=== PATIENT | male | born 1975 | race Caucasian/White ===

== ENCOUNTER → 2020-06-29 12:58 | Outpatient (REF) | payer BC, SELFPAY | LOC: ANHLAB 12:58 | PROVIDERS: Visit Provider Nurse Practitioner | DX: R22.9 Localized swelling, mass and lump, unspecified (principal) | CPT/HCPCS: 88304 ==

== ENCOUNTER 2021-05-23 06:24 | Inpatient (IN) | payer BC, SELFPAY ==
[2021-05-23] VITALS (32 sets, daily range): BP systolic 139–157; BP diastolic 70–107; PULSE 85–101; RESP 12–26; TEMP 36.8–39.3; O2SAT 90–97; BMI 27.9
--- NOTE | ~2021-05-23 | US_ITS ---
EXAMINATION:US venous doppler LE BI INDICATION:Pulmonary embolism TECHNIQUE: Multiple grayscale, color flow and Doppler images of the right and left lower extremity de ep venous systems were obtained and reviewed. COMPARISON:No prior studies for comparison. FINDINGS: The common femoral, superficial femoral and popliteal veins demonstrate normal respiratory variation, augmentation and compressibility. Color flow is also seen within the posterior tibial, pe roneal, greater saphenous and profunda veins. IMPRESSION: 1: No lower extremity deep venous thrombosis. Reviewed, dictated and finalized at location A. INE TACK PULLER
--- NOTE | ~2021-05-23 | XR_ITS ---
XR chest 1V portable 05/23/2021 09:21 Indication: Covid infection. Chest tightness and cough. Procedure: AP portable chest Comparison: No prior studies for comparison. Findings: Patchy bilateral airspace disease, compatible with pneumonia. No pleural effusion or pneumo thorax. Heart size is normal. No acute osseous abnormality. Healed right clavicular fracture. Impression: 1: Patchy bilateral airspace disease, compatible with pneumonia. Reviewed, dictated and finalized at location A. IST Impression: 1: Patchy bilateral airspace disease, compatible with pneumonia.
--- NOTE | ~2021-05-23 | XR_ITS ---
XR chest 1V portable DATE: 05/25/2021 06:31 INDICATION: New-onset chest pain with inspiration. Pulmonary embolism. Covid pneumonia. TECHNIQUE: Portable upright AP chest on 05/21/2021 at 0452 hours COMPARISON: 05/23/2021 CTA chest FINDINGS: Heart size is normal. Scattered mild patchy groundglass infiltrates are suggested, demonstr ated to better advantage on 05/23/2021 CT examination. No pleural effusion or pulmonary vascular congestion or pneumothorax is evident. IMPRESSION: Scattered mild patchy groundglass infiltrates are suggested Reviewed, dictated and finalized at location A. OLOGY TEACHER
--- NOTE | ~2021-05-23 | CT_ITS ---
EXAMINATION: CTA chest PE abdomen pel DATE: 05/23/2021 10:21 PAINT STRIPPER INDICATION: Chest pain. Covid infection. Syncope. TECHNIQUE: Computed tomographic angiography (CTA) of the chest, abdomen, and pelvis was performed wit hout and with 100 mL Omnipaque-350 intravenous contrast. The dose-length product was 899.72 mGy-cm. M aximum intensity projection 3D-reconstructions of the aorta and other arteries were constructed by corey garner technologist on a separate workstation. Automated exposure control and iterative reconstruction denia hnique were employed. COMPARISON: None. FINDINGS: CHEST CTA: Study is technically adequate. There are small filling defects in right upper and lower lobe subsegme ntal pulmonary arteries, consistent with pulmonary embolism, small thrombus burden. Heart size normal . No significant pleural or pericardial effusion. Small hiatal hernia. There is fluid in the superior pericardial recess. No significant lymphadenopathy. Heart size is borderline. There is patchy ground glass opacification throughout both lungs, consistent with pneumonia. No endobronchial lesions. ABDOMEN AND PELVIS CTA: The liver, spleen, pancreas, adrenal glands and kidneys are unremarkable. Gallbladder is present. Non obstructive bowel gas pattern. No lymphadenopathy. Gallbladder is present. No free air or free fluid. No significant bone or joint abnormality. No focal lytic or blastic lesions. IMPRESSION: 1. Small filling defects in right upper and lower lobe subsegmental pulmonary arteries, consistent wi th pulmonary embolism, small thrombus burden. 2: Patchy bilateral groundglass opacities of both lungs, consistent with Covid pneumonia. Reviewed, dictated and finalized at location A. T STRIPPER IMPRESSION: 1. Small filling defects in right upper and lower lobe subsegmental pulmonary a rteries, consistent with pulmonary embolism, small thrombus burden. 2: Patchy bilateral groundglass opacities of both lungs, consistent with Covid pneumonia.
--- NOTE | ~2021-05-23 | CT_ITS ---
EXAMINATION: CTA chest PE protocol DATE: 05/25/2021 11:27 INDICATION: New oxygen requirement and pleuritic chest pain. TECHNIQUE: Computed tomography (CT) pulmonary angiogram of the chest was performed with 100 mL Omnipa que-350 intravenous contrast. Additional 3D reconstructions utilizing coronal maximum intensity proje ction (MIP) were performed. Automated exposure control and iterative reconstruction technique were em ployed. The dose-length product was 479.52 mGy-cm. COMPARISON: 05/23/2021 FINDINGS: Excellent contrast opacification of the pulmonary arteries. There is mild streak artifact from dense contrast in the superior vena cava and right atrium. Mild scattered respiratory motion artifact which does not significantly limit evaluation. No pulmonary embolism. Interval increase in diffuse patchy groundglass opacities throughout both lungs with peripheral and lower lung predominance consistent wi th COVID pneumonia. No pleural effusion or pneumothorax. Heart size is normal. No pericardial effusio n. Thoracic aorta is normal in caliber with no dissection. Calcified mediastinal lymph nodes consiste nt with old granulomatous disease. No pathologically enlarged thoracic lymphadenopathy. Small sliding -type hiatal hernia. The visualized upper abdomen and bones are unremarkable. IMPRESSION: 1. No pulmonary embolism. 2. Interval increase in diffuse patchy bilateral groundglass opacities consistent with worsening COVI D pneumonia. Reviewed, dictated and finalized at location H. MACHINE OPERATOR IMPRESSION: 1. No pulmonary embolism. 2. Interval increase in diffuse patchy bilateral groundglass opacities consiste nt with worsening COVID pneumonia.
--- NOTE | ~2021-05-23 | CT_ITS ---
EXAMINATION: CT BRAIN W/O DATE: 05/23/2021 12:01 INDICATION: Head laceration. Loss of consciousness. Covid infection. TECHNIQUE: Computed tomography (CT) of the head was performed without intravenous contrast. The dose- length product was 605.33 mGy-cm. Automated exposure control and iterative reconstruction technique w ere employed. COMPARISON: No prior studies for comparison. FINDINGS: Normal brain parenchymal volume for age. Normal salas-white differentiation. No acute intrac ranial hemorrhage, infarction, mass or mass effect. No ventriculomegaly or midline shift. Midline sagittal images demonstrate a normal corpus callosum, c raniovertebral junction and sella turcica. Basilar cisterns are patent. There is mild mucosal thickening in the ethmoid sinuses. Mastoids are pneumatized. IMPRESSION: 1. No acute intracranial abnormality. Reviewed, dictated and finalized at location A. EHOLDER MANAGER
--- NOTE | 2021-05-23 09:03 | ECG_ITS ---
Measurements Intervals [place] Rate: 90 P: 30 SD: 176 QRS: 42 QRSD: 98 T: -3 QT: 347 QTc: 425 Interpretive Statements SINUS RHYTHM POSSIBLE LEFT ATRIAL ENLARGEMENT MINIMAL Q WAVES- DIFFUSE LEADS BORDERLINE ST-T WAVE ABNORMALITY- INFERIOR LEADS BASELINE ARTIFACT- I, III, AVL, AVF BORDERLINE ECG Electronically Signed On 05-23-2021 10:41:38 PIPE SMOKING MACHINE OPERATOR by Korey Saenz D.O.
[2021-05-23] MEDS: ONDANSETRON INJ 4 MG/2 ML VIAL IV PUSH (09:22)
[2021-05-23] MEDS: LACTATED RINGERS 1,000 ML 999 ML IV CONT (09:22)
[2021-05-23 09:26] LABS: Basophils Percent Auto 0.2 % (0.2-1.2); Hemoglobin 14.4 g/dL (14.0-18.0); Immature Granulocyte Absolute 0.02 K/mm3 (0.00-0.031); Immature Granulocyte Percent A 0.4 % (0-0.5); Lymphocytes Absolute Auto 0.61 K/mm3 (0.9-3.2); Lymphocytes Percent Auto 12.2 % (18.3-44.2); Mean Corpuscular Hemoglobin 29.9 pg (26-34); Mean Platelet Volume 9.7 fl (7.4-10.4); Monocytes Absolute Auto 0.5 K/mm3 (0.1-0.6); Neutrophils Absolute Auto 3.9 K/mm3 (1.3-6.7); Neutrophils Percent Auto 78.2 % (45.5-73.1); Platelet Count Result 196 k/mm3 (150-375); Red Blood Count 4.82 M/mm3 (4.6-6.20); Red Cell Distribution Width 11.7 % (11.5-14.5)
[2021-05-23 09:31] LABS: Alanine Aminotransferase 32 U/L (4-50); Albumin Level 4.1 g/dL (3.5-5.1); Alkaline Phosphatase 53 U/L (38-126); Anion Gap 9 mmol/L (8-16); Aspartate Amino Transferase 36 U/L (17-59); Bilirubin,Total 0.5 mg/dL (0.2-1.3); Blood Urea Nitrogen 10 mg/dL (9-20); Calcium 8.5 mg/dL (8.4-10.2); Carbon Dioxide 29 mmol/L (22-30); Chloride 97 mmol/L (98-107); Estimated CRCL calculation 108 ml/min; Estimated Glomerular Filt Rate > 60; Glucose 140 mg/dL (65-110); Lipase 89 U/L (23-300); Potassium 3.6 mmol/L (3.4-5.0); Sodium 135 mmol/L (137-145)
[2021-05-23 09:44] LABS: Atypical Lymphocytes Present; Platelet Estimate Adequate (Adequate)
--- NOTE | 2021-05-23 09:45 | ED.SYNCOPE ---
HPI - Syncope General Chief Complaint: Syncope Stated Complaint: covid x 10 days now passing out Time Seen by Provider: 05/23/21 08:33 Source: patient and RN notes reviewed Mode of arrival: ambulatory Limitations: no limitations History of Present Illness HPI narrative: This is a 45 year old male who presents for evaluation of a syncope episode. Patient reports he was diagnosed with covid 10 days ago. He had been doing well except for continued fever and chills. Last night he was having chills so he decided to take a hot bath. He states he passed out upon standing up to get out of bath tub. He has had 2 other episodes of syncope. This morning he was sitting on the toilet and he became nauseated. He states he passed out on toilet, and he hit his head. He is complaining of diffuse abdominal pain discomfort over past couple of days. He denies chest pain, sob. Related Data Home Medications Medication Instructions Recorded Confirmed No Home Medications 04/07/19 05/23/21 Allergies Allergy/AdvReac Type Severity Reaction Status Date / Time doxycycline Allergy Difficulty Verified 05/23/21 18:30 Breathing Review of Systems Review of Systems: All systems reviewed & are unremarkable except as noted in HPI and below PMFSH Past Medical History Medical History (Updated 05/23/21 @ 18:48 by Pennie Chapman MD) Patient denies medical problems Social History Social History Smoking status: Never smoker Alcohol intake: former Substance use: never Spiritual care concerns: No Exam Const: General: no acute distress and alert Orientation/consciousness: patient oriented x3 HENMT: Head: normocephalic and other (midforehead abrasion) Face and sinus: normal facial exam, sinuses nontender and face symmetric Mouth: Yes Normal oral and palatal mucosa present, Yes lip normal, Yes oropharynx normal and Yes moist mucous membranes Eyes: Pupils: Equal, round and reactive pupils present EOM: EOMs intact bilaterally Neck: Neck: normal visual inspection Chest: Chest palpation & inspection: normal inspection of the chest Resp: Effort & Inspection: normal respiratory effort and no retractions Auscultation: clear to auscultation bilaterally Cardio: Rate: regular rate Rhythm: regular rhythm Heart sounds: no murmurs GI: GI Palp: Yes Soft to palpation, Yes Tenderness to palpation present (GI) (LLQ) and No Guarding due to palpation present (GI) Auscultation: normal bowel sounds Skin: General skin exam: normal color Rashes: no rashes Neuro: General: patient oriented x3, moves all extremities and CN's II-XI intact bilaterally Extrem: General: normal to inspection Psych: Mental Status: mental status grossly normal Affect: normal affect Course Reevaluation(s) Reevaluation #1: I Discussed with patient that he will be admitted for observation for PE and syncope. Date: 05/23/21 Time: 12:30 Consultations Consultation #1: I Discussed case with DR. Mathews. He understands CT brain ordered before patient to be anticoagulated. CT initially not order because he did not have any vomiting, headache, dizziness or focal deficits. He acepts patient to tele for PE, syncope Date: 05/23/21 Time: 12:30 Vital Signs Vital signs: Vital Signs Temperature 98.2 F 05/23/21 06:42 Pulse Rate 88 05/23/21 06:42 Respiratory Rate 18 05/23/21 06:42 Blood Pressure 139/84 05/23/21 06:42 Pulse Oximetry 96 05/23/21 06:42 Temperature 100.2 F H 05/23/21 18:38 Pulse Rate 94 05/23/21 18:38 Respiratory Rate 18 05/23/21 18:38 Blood Pressure 154/85 H 05/23/21 18:38 Pulse Oximetry 93 05/23/21 18:38 MDM - Syncope Lab Data Attestation: I reviewed the patient's lab results. Result diagrams: 05/23/21 09:11 05/23/21 09:11 Labs: Lab Results 05/23/21 05/23/21 05/23/21 Range/Units 09:11 09:11 09:11 WBC
[2021-05-23 10:53] LABS: Add Urine Microscopic? YES; Appearance Urine Clear (Clear); Bilirubin Urine Negative (Negative); Blood Urine Negative (Negative); Color Urine Amber (Yellow); Glucose Urine UA Negative (Negative); Ketones Urine 1+ mg/dL (Negative); Leukocyte Esterase Ur Negative LEU/UL (Negative); Mucus Urine Few /lpf; Nitrate Urine Negative (Negative); Protein Urine 2+ mg/dL (Negative); Squamous Epithelial Cell Urine Rare /hpf (Few); WBC Urine 0-3 /hpf
[2021-05-23 11:31] LABS: Troponin I < 0.012 ng/mL (0.000-0.034)
[2021-05-23] MEDS: ENOXAPARIN 100 MG/ML SYRINGE 90 MG SUB-Q (12:41)
--- NOTE | 2021-05-23 18:17 | ADMGEN ---
This patient, Maida Yoder, was admitted to [facility] Surg Room 311-01. Patient/family oriented to hospital policies and general routines including ID bracelet, bed and alarms, visiting hours, pain management, procedures, bathroom and other care routines, personal items, smoking policy, room service/diet, and visiting hours. Information on how to activate the Rapid Response Team has been discussed. Patient/Family are encouraged to report perceived risks to care and to ask questions if they do not understand what they are told or what they should do.
--- NOTE | 2021-05-23 20:49 | PM.IMHP ---
H&P: HPI History of Present Illness Date/Time: 05/23/21 20:49 this is a 45-year-old male patient who has been having symptoms for at least 10 days and was diagnosed with COVID-19 10 days ago. The patient stated that he has fallen 2 nights in a row. The patient stated that he had been in a hot bathtub and gotten out and passed out hit his head 2 days ago. Today he said he had diarrhea and he was sitting on the toilet and had a vagal response and passed out hit his head has a laceration the left side of his head. The patient is having some abdominal pain and discomfort as well as diarrhea. He has been having fevers and chills. His fevers low-grade during the day and then elevate during the night. The patient has been having some severe coughing as well. He is not short of breath at this time. Head CT was read as no acute intracranial abnormality. Chest abdomen pelvis CT was read as small filling deficit right upper and lower lobe subsegmental pulmonary arteries consistent with pulmonary embolism small thrombus burden. Patchy bilateral ground-glass opacities both lungs consistent with COVID pneumonia. Chest x-ray was read as patchy bilateral airspace disease compatible with pneumonia. He is not requiring any oxygen at this time. The patient is being admitted to inpatient services on the date of service 05/23/2021. Chief Complaint: Syncopal episode Review of Systems Review of Systems: All systems reviewed & are unremarkable except as noted in HPI and below Constitutional: Constitutional: Reports as per HPI and Reports no additional constitutional complaints Eyes: Eyes: Reports as per HPI and Reports no additional eye complaints ENT: Reports system reviewed and no additional complaints, except as documented and Reports Normal hearing present Cardiovascular: Cardiovascular: Reports no additional cardiovascular complaints Respiratory: Respiratory: Reports no additional respiratory complaints and Reports no additional respiratory complaints Gastrointestinal: Gastrointestinal: Reports as per HPI and Reports no additional gastrointestinal complaints Musculoskeletal: Musculoskeletal: Reports no additional musculoskeletal complaints Integumentary/Breasts: Skin/Breast: Reports system reviewed and no additional complaints, except as docu and Reports as per HPI Neurologic: Reports system reviewed and no additional complaints, except as documented, Reports as per HPI and Reports Normal hearing present Psychiatric: Psychiatric: Reports no additional psychiatric complaints and Reports as per HPI Endocrine: Endocrine: Reports no additional endocrine complaints Hematologic/Lymphatic: Hematologic/Lymphatic: Reports no additional hematologic/lymphatic complaints Allergic/Immunologic: Allergic/Immunologic: Reports no additional allergic/immunologic complaints PMF Past Medical History Medical History Patient denies medical problems Surgical History Surgical History No pertinent past surgical history Family History Family History (Updated 05/23/21 @ 20:56 by Jerica Soto NP) Mother Cancer Social History Social History (Updated 05/23/21 @ 20:56 by Jerica Soto NP) Social History: The patient does not have any children. He is single. He does not smoke or drink or use any illicit drugs. He does not have a durable power trust and estates attorney for healthcare. The patient works for [employer]. Code status full code Smoking status: Never smoker Alcohol intake: former Substance use: never Spiritual care concerns: No Meds Home Medications and Allergies Home Medications Medication Instructions Recorded Confirmed Type No Home Medications 04/07/19 05/23/21 History Allergies Allergy/AdvReac Type Severity Reaction Status Date / Time doxycycline Allergy Difficulty Verified 05/23/21 18:30 Br
[2021-05-23 21:30] LABS: Alanine Aminotransferase 30 U/L (4-50); Estimated CRCL calculation 108 ml/min; Estimated Glomerular Filt Rate > 60
[2021-05-23 21:31] LABS: INR 1.1; Prothrombin Time 13.6 Seconds (11.1-14.7)
[2021-05-24] VITALS (8 sets, daily range): BP systolic 135–155; BP diastolic 78–93; PULSE 78–98; RESP 16–20; TEMP 36.2–38; O2SAT 91–93
[2021-05-24] MEDS: ENOXAPARIN 100 MG/ML SYRINGE 90 MG SUB-Q ×2 (00:40→13:14)
--- NOTE | 2021-05-24 06:00 | ECHO_ITS ---
Patient Info Name: Maida Yoder Age: 45 years : 1975 Gender: Male Ht: 71 in Wt: 200 lbs BSA: 2.15 m2 HR: 78 bpm BP: 146 / 70 mmHg Heart Rhythm: Sinus Rhythm Technical Quality: Good Exam Date: 05/24/2021 10:38 AM Exam Location: [facility] Pulmonary Exam Room: 311 Patient Status: Inpatient Admit Date: 05/23/2021 Staff Ordering Physician: Pennie Chapman MD Brush Clearing Laborer: Diane Pierre RDCS Attending Provider: Lor Armenta PA-C Referring Physician: Ari HILL; Exam Type: CA echo doppler color flow Study Info Indications - syncope pulm embolism Complete two-dimensional, color flow and Doppler transthoracic echocardiogram is performed. Summary 1. Complete two-dimensional, color flow and Doppler transthoracic echocardiogram is performed. 2. Left ventricular chamber dimension is normal. 3. Left ventricular systolic function is normal, estimated at 65-70%. 4. There is mildly increased left ventricular wall thickness. 5. The left ventricular diastolic function is grade I diastolic dysfunction. 6. There is mild mitral valve regurgitation. 7. There is mild tricuspid valve regurgitation. Left Ventricle Left ventricular chamber dimension is normal. Left ventricular systolic function is normal, estimated at 65-70%. There is mildly increased left ventricular wall thickness. The left ventricular diastolic function is grade I diastolic dysfunction. Right Ventricle Right ventricular chamber dimension is normal. Right ventricular systolic function is normal. Left Atria Left atrial chamber dimension is normal. Right Atria Right atrial chamber dimension is normal. Atrial Septum Intact interatrial septum visualized by color flow imaging. Aortic Valve The aortic valve is trileaflet. There is mild aortic valve sclerosis. There is no aortic valve stenosis. There is trace aortic valve regurgitation. Pulmonic Valve The pulmonic valve is normal. There is no pulmonic valve stenosis. There is trace pulmonic regurgitation. Mitral Valve The mitral valve has normal leaflets. There is no mitral valve stenosis. There is mild mitral valve regurgitation. Tricuspid Valve The tricuspid valve leaflets are normal. There is no significant tricuspid valve stenosis. There is mild tricuspid valve regurgitation. No pulmonary hypertension, estimated pulmonary arterial systolic pressure is 26 mmHg. Pericardium/Pleural The pericardium appears normal. There is no pericardial effusion. Aorta The aortic root size at the sinus of Valsalva is normal. Left Ventricular Outflow Tract Name Value Normal LVOT 2D LVOT Diameter 2.1 cm LVOT Doppler LVOT Peak Gradient 6 mmHg LVOT Mean Gradient 3 mmHg LVOT VTI 21 cm LVOT VTI/AV VTI Ratio 0.9 LVOT Stroke Volume 75 ml LVOT CO 17.8 l/min LVOT CI 8.3 l/min/m2 Pulmonic Valve
[2021-05-24 06:35] LABS: INR 1.1; Prothrombin Time 13.8 Seconds (11.1-14.7)
[2021-05-24 06:36] LABS: Partial Thromboplastin Time 38.8 SECONDS (22.3-36.8)
[2021-05-24 06:41] LABS: Lactic Acid Reflex 0.9 mmol/L (0.7-2.1)
[2021-05-24 06:42] LABS: Potassium 3.3 mmol/L (3.4-5.0)
[2021-05-24 06:44] LABS: Basophils Percent Auto 0.2 % (0.2-1.2); Hematocrit 35.9 % (42.0-52.0); Hemoglobin 12.7 g/dL (14.0-18.0); Immature Granulocyte Absolute 0.03 K/mm3 (0.00-0.031); Immature Granulocyte Percent A 0.7 % (0-0.5); Lymphocytes Absolute Auto 1.14 K/mm3 (0.9-3.2); Lymphocytes Percent Auto 24.8 % (18.3-44.2); Mean Corpuscular HGB Conc 35.4 g/dl (32-36); Mean Corpuscular Volume 84.9 fl (80-100); Mean Platelet Volume 9.9 fl (7.4-10.4); Monocytes Absolute Auto 0.4 K/mm3 (0.1-0.6); Monocytes Percent Auto 9.1 % (2.6-8.5); Neutrophils Percent Auto 65.2 % (45.5-73.1); Platelet Count Result 187 k/mm3 (150-375); Red Blood Count 4.23 M/mm3 (4.6-6.20); Red Cell Distribution Width 11.8 % (11.5-14.5); White Blood Count 4.6 K/mm3 (4.5-10.0)
[2021-05-24 06:57] LABS: Alanine Aminotransferase 35 U/L (4-50); Albumin Level 3.5 g/dL (3.5-5.1); Alkaline Phosphatase 47 U/L (38-126); Anion Gap 3 mmol/L (8-16); Aspartate Amino Transferase 45 U/L (17-59); Bilirubin,Total 0.4 mg/dL (0.2-1.3); Blood Urea Nitrogen 11 mg/dL (9-20); CRP 6.6 mg/dL (<1.0); Carbon Dioxide 32 mmol/L (22-30); Chloride 94 mmol/L (98-107); Estimated CRCL calculation 108 ml/min; Estimated Glomerular Filt Rate > 60; Glucose 112 mg/dL (65-110); Lactate Dehydrogenase 822 U/L (313-618); Magnesium 1.8 mg/dL (1.6-2.3); Sodium 129 mmol/L (137-145)
[2021-05-24 08:09] LABS: NT Pro B Type Natriuretic Pept 93 pg/mL (5-100)
[2021-05-24] MEDS: POTASSIUM CHLORIDE 20 MEQ TABLET PO (08:57)
[2021-05-24] MEDS: DEXAMETHASONE 2 MG TABLET 6 MG PO (08:58)
[2021-05-24] MEDS: ACETAMINOPHEN 325 MG TABLET 650 MG PO (08:58)
[2021-05-24 12:53] LABS: Creatinine Urine 57.6 mg/dL
[2021-05-24 12:57] LABS: Sodium Urine Random 11 meq/L
--- NOTE | 2021-05-24 13:59 | PC.NURSE ---
Patient informed RN his mother was recently started on anticoagulant therapy and had an allergic reaction. Mother was prescribed Xarelto, patient wanted RN to note this in his chart.
[2021-05-24 14:29] LABS: Sodium 131 mmol/L (137-145)
--- NOTE | 2021-05-24 15:15 | P.PNIM_ITS ---
Progress Note: A&P Assessment and Plan (1) Syncope and collapse: Code(s): R55 - Syncope and collapse Status: Acute Assessment and Plan: Likely secondary to dehydration. Patient states episode occurred after having several bouts of diarrhea. * Fall precautions implemented * Check orthostatic blood pressures * He has been rehydrated with IV fluids. Encourage oral fluid intake * Echocardiogram reviewed with normal systolic function and no significant valvular disease * He did hit his head when he lost consciousness. Head CT with no acute findings. Small abrasion on anterior forehead (2) Pneumonia due to 2019 novel coronavirus: Code(s): U07.1 - COVID-19; J12.82 - Pneumonia due to coronavirus disease 2019 Status: Acute Assessment and Plan: Positive COVID test on 03/13/2021. * CXR showed patchy bilateral airspace disease consistent with pneumonia, also evident on CTA * He has no oxygen requirement. He is maintaining adequate oxygen saturations on room air * No need for COVID-19 specific therapy at this time including dexamethasone or remdesivir given his lack of O2 requirements and onset of symptoms * Supportive care to include bronchodilators, antipyretics, expectorants, incentive spirometry * Continue isolation precautions * Inflammatory markers are elevated. Continue to trend * He has been febrile up to 102.8?. Antipyretics as needed. Last temperature 97.8? * Patient has not been vaccinated for COVID-19 (3) Pulmonary emboli: Qualifiers: Acute cor pulmonale presence: without acute cor pulmonale Chronicity: acute Pulmonary embolism type: unspecified Qualified Code(s): I26.99 - Other pulmonary embolism without acute cor pulmonale Code(s): I26.99 - Other pulmonary embolism without acute cor pulmonale Status: Acute Assessment and Plan: CTA showed small filling defects in the right upper and lower lobe subsegmental pulmonary arteries with small thrombus burden * likely secondary to COVID-19 * venous Doppler negative for DVT * echo reviewed with no evidence of heart strain * BNP is within normal limits. troponin negative * received therapeutic subcutaneous Lovenox injections. * will transition to Eliquis this evening. 10 mg b.i.d. x7 days then 5 mg b.i.d. * care coordination following for pricing for Eliquis. Patient agreeable to cost (4) Hyponatremia: Code(s): E87.1 - Hypo-osmolality and hyponatremia Status: Acute Assessment and Plan: Sodium slightly decreased to 129 this morning * FENa is 0.1% * Likely related to dehydration * Sodium this afternoon improved to 131 * Encourage oral fluid intake. Hold off on further IV fluids at this time as he has already been rehydrated with IV fluids and is tolerating oral intake. Do not want to volume overload given his respiratory illness * Repeat sodium this evening to ensure continued improvement at appropriate rate (5) Hypokalemia: Code(s): E87.6 - Hypokalemia Status: Acute Assessment and Plan: Potassium 3.3 this morning * administer 20 mEq p.o. KCl * monitor BMP Subjective Date/time seen: 05/24/21 15:15 Interval history: Date of service: 05/24/2021 Maida Yoder is a healthy 45-year-old male who denies any significant past medical history who is seen in follow-up for COVID-19 and pulmonary embolism. He is feeling a lot better today. He states that his fever finally broke after having high fevers for about 10 days. His breathing is better. He has oc
--- NOTE | 2021-05-24 15:15 | PM.IMPN ---
Progress Note: A&P Assessment and Plan (1) Syncope and collapse: Code(s): R55 - Syncope and collapse Status: Acute Assessment and Plan: Likely secondary to dehydration. Patient states episode occurred after having several bouts of diarrhea. Fall precautions implemented Check orthostatic blood pressures He has been rehydrated with IV fluids. Encourage oral fluid intake Echocardiogram reviewed with normal systolic function and no significant valvular disease He did hit his head when he lost consciousness. Head CT with no acute findings. Small abrasion on anterior forehead (2) Pneumonia due to 2019 novel coronavirus: Code(s): U07.1 - COVID-19; J12.82 - Pneumonia due to coronavirus disease 2019 Status: Acute Assessment and Plan: Positive COVID test on 03/13/2021. CXR showed patchy bilateral airspace disease consistent with pneumonia, also evident on CTA He has no oxygen requirement. He is maintaining adequate oxygen saturations on room air No need for COVID-19 specific therapy at this time including dexamethasone or remdesivir given his lack of O2 requirements and onset of symptoms Supportive care to include bronchodilators, antipyretics, expectorants, incentive spirometry Continue isolation precautions Inflammatory markers are elevated. Continue to trend He has been febrile up to 102.8?. Antipyretics as needed. Last temperature 97.8? Patient has not been vaccinated for COVID-19 (3) Pulmonary emboli: Qualifiers: Acute cor pulmonale presence: without acute cor pulmonale Chronicity: acute Pulmonary embolism type: unspecified Qualified Code(s): I26.99 - Other pulmonary embolism without acute cor pulmonale Code(s): I26.99 - Other pulmonary embolism without acute cor pulmonale Status: Acute Assessment and Plan: CTA showed small filling defects in the right upper and lower lobe subsegmental pulmonary arteries with small thrombus burden likely secondary to COVID-19 venous Doppler negative for DVT echo reviewed with no evidence of heart strain BNP is within normal limits. troponin negative received therapeutic subcutaneous Lovenox injections. will transition to Eliquis this evening. 10 mg b.i.d. x7 days then 5 mg b.i.d. care coordination following for pricing for Eliquis. Patient agreeable to cost (4) Hyponatremia: Code(s): E87.1 - Hypo-osmolality and hyponatremia Status: Acute Assessment and Plan: Sodium slightly decreased to 129 this morning FENa is 0.1% Likely related to dehydration Sodium this afternoon improved to 131 Encourage oral fluid intake. Hold off on further IV fluids at this time as he has already been rehydrated with IV fluids and is tolerating oral intake. Do not want to volume overload given his respiratory illness Repeat sodium this evening to ensure continued improvement at appropriate rate (5) Hypokalemia: Code(s): E87.6 - Hypokalemia Status: Acute Assessment and Plan: Potassium 3.3 this morning administer 20 mEq p.o. KCl monitor BMP Subjective Date/time seen: 05/24/21 15:15 Interval history: Date of service: 05/24/2021 Maida Yoder is a healthy 45-year-old male who denies any significant past medical history who is seen in follow-up for COVID-19 and pulmonary embolism. He is feeling a lot better today. He states that his fever finally broke after having high fevers for about 10 days. His breathing is better. He has occasional cough that is improving. Nonproductive of sputum. Shortness of breath has improved. He was previously endorsing diarrhea, but this has resolved and he has not had any loose stools today. He does have an abrasion on his head from when he fell. He says he has some associated neck pain but this is improving. He denies headache. He denies chest pain, pleuritic discomfort, hemoptysis, palpitations. No dizzines
[2021-05-24 20:05] LABS: Sodium 134 mmol/L (137-145)
[2021-05-24] MEDS: APIXABAN 5 MG TABLET 10 MG PO (23:09)
[2021-05-24] MEDS: ALBUTEROL SULFATE (*SP) AEROSOL 1 PUFF 2 PUFF INHALATION (23:11)
[2021-05-24] MEDS: guaiFENesin/DEXTROMETHORPHAN 10 ML UDC PO (23:19)
[2021-05-25] VITALS (14 sets, daily range): BP systolic 127–158; BP diastolic 73–102; PULSE 79–94; RESP 18–20; TEMP 36.2–38.3; O2SAT 93–97
[2021-05-25 06:43] LABS: Hematocrit 38.7 % (42.0-52.0); Hemoglobin 13.9 g/dL (14.0-18.0); Mean Corpuscular HGB Conc 35.9 g/dl (32-36); Mean Corpuscular Hemoglobin 29.8 pg (26-34); Mean Corpuscular Volume 82.9 fl (80-100); Mean Platelet Volume 9.6 fl (7.4-10.4); Platelet Count Result 246 k/mm3 (150-375); Red Blood Count 4.67 M/mm3 (4.6-6.20); Red Cell Distribution Width 11.9 % (11.5-14.5); White Blood Count 7.6 K/mm3 (4.5-10.0)
[2021-05-25 06:49] LABS: INR 1.2; Prothrombin Time 14.7 Seconds (11.1-14.7)
[2021-05-25 07:03] LABS: Alanine Aminotransferase 118 U/L (4-50); Albumin Level 3.8 g/dL (3.5-5.1); Alkaline Phosphatase 55 U/L (38-126); Anion Gap 6 mmol/L (8-16); Aspartate Amino Transferase 113 U/L (17-59); Bilirubin,Total 0.5 mg/dL (0.2-1.3); Blood Urea Nitrogen 10 mg/dL (9-20); CRP 4.4 mg/dL (<1.0); Calcium 8.9 mg/dL (8.4-10.2); Carbon Dioxide 30 mmol/L (22-30); Chloride 97 mmol/L (98-107); Estimated CRCL calculation 141 ml/min; Estimated Glomerular Filt Rate > 60; Glucose 137 mg/dL (65-110); Lactate Dehydrogenase 1127 U/L (313-618); Potassium 3.4 mmol/L (3.4-5.0); Sodium 133 mmol/L (137-145)
[2021-05-25] MEDS: APIXABAN 5 MG TABLET 10 MG PO ×2 (08:21→22:04)
[2021-05-25 08:37] LABS: Ferritin > 2000.00 ng/mL (17.9-464)
--- NOTE | 2021-05-25 12:15 | P.PNIM_ITS ---
Progress Note: A&P Assessment and Plan (1) Syncope and collapse: Code(s): R55 - Syncope and collapse Status: Acute Assessment and Plan: Likely secondary to dehydration. Patient states episode occurred after having several bouts of diarrhea. * Fall precautions implemented * Orthostatic blood pressures negative * He was rehydrated with IV fluids. Encourage oral fluid intake * Echocardiogram reviewed with normal systolic function and no significant valvular disease * He did hit his head when he lost consciousness. Head CT with no acute findings. Small abrasion on anterior forehead (2) Pneumonia due to 2019 novel coronavirus: Code(s): U07.1 - COVID-19; J12.82 - Pneumonia due to coronavirus disease 2019 Status: Acute Assessment and Plan: Positive COVID test on 03/13/2021. * CXR showed patchy bilateral airspace disease consistent with pneumonia, also evident on CTA * He is outside window of treatment with dexamethasone or remdesivir. * Previously had no oxygen requirements, though did develop O2 requirement overnight. May be related to PE vs pneumonia * Supportive care to include bronchodilators, antipyretics, expectorants, incentive spirometry * Continue isolation precautions * Inflammatory markers are elevated. Continue to trend * He has been febrile up to 102.8?. Antipyretics as needed. Afebrile 24 hours * Patient has not been vaccinated for COVID-19 (3) Pulmonary emboli: Qualifiers: Acute cor pulmonale presence: without acute cor pulmonale Chronicity: acute Pulmonary embolism type: unspecified Qualified Code(s): I26.99 - Other pulmonary embolism without acute cor pulmonale Code(s): I26.99 - Other pulmonary embolism without acute cor pulmonale Status: Acute Assessment and Plan: CTA showed small filling defects in the right upper and lower lobe subsegmental pulmonary arteries with small thrombus burden * likely secondary to COVID-19 * venous Doppler negative for DVT * echo reviewed with no evidence of heart strain * BNP is within normal limits. troponin negative * received therapeutic subcutaneous Lovenox injection prior to initiating Eliquis * Continue Eliquis 10 mg b.i.d. x7 days then 5 mg b.i.d. * Did develop pleuritic CP and desaturated overnight to 86% (now on 2.5 L). Suspect threw another clot given his acute change, though venous Doppler negative. Repeat CTA to re-evaluate clot burden (4) Hyponatremia: Code(s): E87.1 - Hypo-osmolality and hyponatremia Status: Acute Assessment and Plan: Improved. Sodium was decreased at 129 * FENa is 0.1% * Likely related to dehydration * Sodium this morning is 133 * Encourage oral fluid intake. * Monitor BMP daily (5) Hypokalemia: Code(s): E87.6 - Hypokalemia Status: Acute Assessment and Plan: Improved with supplementation. Potassium 3.4 this morning * monitor BMP (6) Elevated blood pressure reading: Code(s): R03.0 - Elevated blood-pressure reading, without diagnosis of hypertension Status: Acute Assessment and Plan: No history of hypertension. Blood pressures have been elevated in the 140s-150s systolic and 90s diastolic * May be related to pain and/or anxiety * Continue to monitor blood pressure trends * Consider addition of antihypertensive agent if remaining elevated once patient has clinically improved Subjective Date/time seen: 05/25/21 12:15 Interval history: Date of service: 05/25/2021 Maida Turner
--- NOTE | 2021-05-25 12:15 | PM.IMPN ---
Progress Note: A&P Assessment and Plan (1) Syncope and collapse: Code(s): R55 - Syncope and collapse Status: Acute Assessment and Plan: Likely secondary to dehydration. Patient states episode occurred after having several bouts of diarrhea. Fall precautions implemented Orthostatic blood pressures negative He was rehydrated with IV fluids. Encourage oral fluid intake Echocardiogram reviewed with normal systolic function and no significant valvular disease He did hit his head when he lost consciousness. Head CT with no acute findings. Small abrasion on anterior forehead (2) Pneumonia due to 2019 novel coronavirus: Code(s): U07.1 - COVID-19; J12.82 - Pneumonia due to coronavirus disease 2018 Status: Acute Assessment and Plan: Positive COVID test on 03/13/2021. CXR showed patchy bilateral airspace disease consistent with pneumonia, also evident on CTA He is outside window of treatment with dexamethasone or remdesivir. Previously had no oxygen requirements, though did develop O2 requirement overnight. May be related to PE vs pneumonia Supportive care to include bronchodilators, antipyretics, expectorants, incentive spirometry Continue isolation precautions Inflammatory markers are elevated. Continue to trend He has been febrile up to 102.8?. Antipyretics as needed. Afebrile 24 hours Patient has not been vaccinated for COVID-19 (3) Pulmonary emboli: Qualifiers: Acute cor pulmonale presence: without acute cor pulmonale Chronicity: acute Pulmonary embolism type: unspecified Qualified Code(s): I26.99 - Other pulmonary embolism without acute cor pulmonale Code(s): I26.99 - Other pulmonary embolism without acute cor pulmonale Status: Acute Assessment and Plan: CTA showed small filling defects in the right upper and lower lobe subsegmental pulmonary arteries with small thrombus burden likely secondary to COVID-19 venous Doppler negative for DVT echo reviewed with no evidence of heart strain BNP is within normal limits. troponin negative received therapeutic subcutaneous Lovenox injection prior to initiating Eliquis Continue Eliquis 10 mg b.i.d. x7 days then 5 mg b.i.d. Did develop pleuritic CP and desaturated overnight to 86% (now on 2.5 L). Suspect threw another clot given his acute change, though venous Doppler negative. Repeat CTA to re-evaluate clot burden (4) Hyponatremia: Code(s): E87.1 - Hypo-osmolality and hyponatremia Status: Acute Assessment and Plan: Improved. Sodium was decreased at 129 FENa is 0.1% Likely related to dehydration Sodium this morning is 133 Encourage oral fluid intake. Monitor BMP daily (5) Hypokalemia: Code(s): E87.6 - Hypokalemia Status: Acute Assessment and Plan: Improved with supplementation. Potassium 3.4 this morning monitor BMP (6) Elevated blood pressure reading: Code(s): R03.0 - Elevated blood-pressure reading, without diagnosis of hypertension Status: Acute Assessment and Plan: No history of hypertension. Blood pressures have been elevated in the 140s-150s systolic and 90s diastolic May be related to pain and/or anxiety Continue to monitor blood pressure trends Consider addition of antihypertensive agent if remaining elevated once patient has clinically improved Subjective Date/time seen: 05/25/21 12:15 Interval history: Date of service: 05/25/2021 Maida Yoder is a healthy 45-year-old male who denies any significant past medical history who is seen in follow-up for COVID-19 and pulmonary embolism. Is doing okay today. Yesterday he was feeling really well and then sometime last night became more short of breath and developed pleuritic chest pain. He did require supplemental oxygen. He is less short of breath at this time, though still not feeling as well as he did yesterday and still endo
[2021-05-25] MEDS: ACETAMINOPHEN 325 MG TABLET 650 MG PO (18:19)
[2021-05-25] MEDS: ALBUTEROL SULFATE (*SP) INHALER 2 PUFF INHALATION ×2 (21:20→22:07)
[2021-05-25] MEDS: guaiFENesin/DEXTROMETHORPHAN 10 ML UDC PO (22:24)
[2021-05-26] VITALS (10 sets, daily range): BP systolic 122–145; BP diastolic 74–93; PULSE 67–100; RESP 18–20; TEMP 36.5–37.7; O2SAT 94–97
[2021-05-26] MEDS: ALBUTEROL SULFATE (*SP) INHALER 2 PUFF INHALATION ×3 (02:24→13:32)
[2021-05-26 06:21] LABS: Hematocrit 36.8 % (42.0-52.0); Hemoglobin 13.2 g/dL (14.0-18.0); Mean Corpuscular HGB Conc 35.9 g/dl (32-36); Mean Corpuscular Hemoglobin 30.2 pg (26-34); Mean Corpuscular Volume 84.2 fl (80-100); Mean Platelet Volume 9.4 fl (7.4-10.4); Platelet Count Result 250 k/mm3 (150-375); Red Blood Count 4.37 M/mm3 (4.6-6.20); Red Cell Distribution Width 11.9 % (11.5-14.5); White Blood Count 6.4 K/mm3 (4.5-10.0)
[2021-05-26 06:30] LABS: INR 1.2; Prothrombin Time 14.8 Seconds (11.1-14.7)
[2021-05-26 06:49] LABS: Alanine Aminotransferase 220 U/L (4-50); Albumin Level 3.6 g/dL (3.5-5.1); Alkaline Phosphatase 55 U/L (38-126); Anion Gap 6 mmol/L (8-16); Aspartate Amino Transferase 160 U/L (17-59); Bilirubin,Total 0.6 mg/dL (0.2-1.3); Blood Urea Nitrogen 14 mg/dL (9-20); CRP 3.7 mg/dL (<1.0); Calcium 8.4 mg/dL (8.4-10.2); Carbon Dioxide 27 mmol/L (22-30); Chloride 100 mmol/L (98-107); Estimated CRCL calculation 122 ml/min; Estimated Glomerular Filt Rate > 60; Glucose 112 mg/dL (65-110); Lactate Dehydrogenase 1106 U/L (313-618); Potassium 3.3 mmol/L (3.4-5.0); Sodium 133 mmol/L (137-145)
[2021-05-26 08:43] LABS: Ferritin > 2000.00 ng/mL (17.9-464)
[2021-05-26] MEDS: APIXABAN 5 MG TABLET 10 MG PO ×2 (10:04→21:54)
--- NOTE | 2021-05-26 13:21 | P.PNIM_ITS ---
Progress Note: A&P Assessment and Plan (1) Syncope and collapse: Code(s): R55 - Syncope and collapse Status: Acute Assessment and Plan: Likely secondary to dehydration. Patient states episode occurred after having several bouts of diarrhea. * Fall precautions implemented * Orthostatic blood pressures negative * He was rehydrated with IV fluids. Encourage oral fluid intake * Echocardiogram reviewed with normal systolic function and no significant valvular disease * He did hit his head when he lost consciousness. Head CT with no acute findings. Small abrasion on anterior forehead (2) Pneumonia due to 2019 novel coronavirus: Code(s): U07.1 - COVID-19; J12.82 - Pneumonia due to coronavirus disease 2019 Status: Acute Assessment and Plan: Positive COVID test on 03/13/2021. * CXR showed patchy bilateral airspace disease consistent with pneumonia, also evident on CTA * Restart dexamethasone given his continued oxygen requirement and CTA suggesting worsened pneumonia. He is outside the window for remdesivir treatment. * Continue supplemental O2 as needed. He has required up to 2.5 L * Supportive care to include bronchodilators, antipyretics, expectorants, incentive spirometry * Continue isolation precautions * Inflammatory markers are elevated. Continue to trend * He has been febrile up to 102.8?. Febrile yesterday up to 101.0?. Afebrile so far today Antipyretics as needed. * Patient has not been vaccinated for COVID-19 (3) Pulmonary emboli: Qualifiers: Acute cor pulmonale presence: without acute cor pulmonale Chronicity: acute Pulmonary embolism type: unspecified Qualified Code(s): I26.99 - Other pulmonary embolism without acute cor pulmonale Code(s): I26.99 - Other pulmonary embolism without acute cor pulmonale Status: Acute Assessment and Plan: CTA showed small filling defects in the right upper and lower lobe subsegmental pulmonary arteries with small thrombus burden * likely secondary to COVID-19 * venous Doppler negative for DVT * echo reviewed with no evidence of heart strain * BNP is within normal limits. troponin negative * received therapeutic subcutaneous Lovenox injection prior to initiating Eliquis * Continue Eliquis 10 mg b.i.d. x7 days then 5 mg b.i.d. * Did develop pleuritic CP and desaturated overnight to 86% on 05/24, therefore repeat CTA performed on 05/25. Report shows no PE, however I discussed the case with radiologist, Dr. Solitario who states there is residual right lobe PE as well as left lobe PE with small clot burden. Reports he will provide addendum to documentation. Continue plan of care. Repeat BNP (4) Hyponatremia: Code(s): E87.1 - Hypo-osmolality and hyponatremia Status: Acute Assessment and Plan: Improved. Sodium was decreased at 129 * FENa is 0.1% * Likely related to dehydration * Sodium this morning is 133 * Encourage oral fluid intake. * Monitor BMP daily (5) Hypokalemia: Code(s): E87.6 - Hypokalemia Status: Acute Assessment and Plan: Potassium 3.3 this morning * 20 mEq PO KCl * Monitor BMP (6) Elevated blood pressure reading: Code(s): R03.0 - Elevated blood-pressure reading, without diagnosis of hypertension Status: Acute Assessment and Plan: No history of hypertension. Blood pressures have been elevated in the 140s-150s systolic and 90s diastolic. Last BP 145/93 * May be related to pain and/or anxiety * Continue to monitor blood pressure trends
--- NOTE | 2021-05-26 13:21 | PM.IMPN ---
Progress Note: A&P Assessment and Plan (1) Syncope and collapse: Code(s): R55 - Syncope and collapse Status: Acute Assessment and Plan: Likely secondary to dehydration. Patient states episode occurred after having several bouts of diarrhea. Fall precautions implemented Orthostatic blood pressures negative He was rehydrated with IV fluids. Encourage oral fluid intake Echocardiogram reviewed with normal systolic function and no significant valvular disease He did hit his head when he lost consciousness. Head CT with no acute findings. Small abrasion on anterior forehead (2) Pneumonia due to 2019 novel coronavirus: Code(s): U07.1 - COVID-19; J12.82 - Pneumonia due to coronavirus disease 2019 Status: Acute Assessment and Plan: Positive COVID test on 03/13/2021. CXR showed patchy bilateral airspace disease consistent with pneumonia, also evident on CTA Restart dexamethasone given his continued oxygen requirement and CTA suggesting worsened pneumonia. He is outside the window for remdesivir treatment. Continue supplemental O2 as needed. He has required up to 2.5 L Supportive care to include bronchodilators, antipyretics, expectorants, incentive spirometry Continue isolation precautions Inflammatory markers are elevated. Continue to trend He has been febrile up to 102.8?. Febrile yesterday up to 101.0?. Afebrile so far today Antipyretics as needed. Patient has not been vaccinated for COVID-19 (3) Pulmonary emboli: Qualifiers: Acute cor pulmonale presence: without acute cor pulmonale Chronicity: acute Pulmonary embolism type: unspecified Qualified Code(s): I26.99 - Other pulmonary embolism without acute cor pulmonale Code(s): I26.99 - Other pulmonary embolism without acute cor pulmonale Status: Acute Assessment and Plan: CTA showed small filling defects in the right upper and lower lobe subsegmental pulmonary arteries with small thrombus burden likely secondary to COVID-19 venous Doppler negative for DVT echo reviewed with no evidence of heart strain BNP is within normal limits. troponin negative received therapeutic subcutaneous Lovenox injection prior to initiating Eliquis Continue Eliquis 10 mg b.i.d. x7 days then 5 mg b.i.d. Did develop pleuritic CP and desaturated overnight to 86% on 05/24, therefore repeat CTA performed on 05/25. Report shows no PE, however I discussed the case with radiologist, Dr. Solitario who states there is residual right lobe PE as well as left lobe PE with small clot burden. Reports he will provide addendum to documentation. Continue plan of care. Repeat BNP (4) Hyponatremia: Code(s): E87.1 - Hypo-osmolality and hyponatremia Status: Acute Assessment and Plan: Improved. Sodium was decreased at 129 FENa is 0.1% Likely related to dehydration Sodium this morning is 133 Encourage oral fluid intake. Monitor BMP daily (5) Hypokalemia: Code(s): E87.6 - Hypokalemia Status: Acute Assessment and Plan: Potassium 3.3 this morning 20 mEq PO KCl Monitor BMP (6) Elevated blood pressure reading: Code(s): R03.0 - Elevated blood-pressure reading, without diagnosis of hypertension Status: Acute Assessment and Plan: No history of hypertension. Blood pressures have been elevated in the 140s-150s systolic and 90s diastolic. Last BP 145/93 May be related to pain and/or anxiety Continue to monitor blood pressure trends Consider addition of antihypertensive agent if remaining elevated once patient has clinically improved Subjective Date/time seen: 05/26/21 13:21 Interval history: Date of service: 05/26/2021 Maida Yoder is a healthy 45-year-old male who denies any significant past medical history who is seen in follow-up for COVID-19 and pulmonary embolism. Feels better today. His shortness of breath has improved. No l
[2021-05-26] MEDS: DEXAMETHASONE 2 MG TABLET 6 MG PO (14:11)
[2021-05-26] MEDS: POTASSIUM CHLORIDE 20 MEQ TABLET PO (14:12)
--- NOTE | 2021-05-26 23:16 | PCRCNOTE ---
Window of time for administration has passed. See next scheduled administration.
[2021-05-27] VITALS: BP 138/87; PULSE 71; PULSE 80; RESP 18; TEMP 36.8; O2SAT 95
[2021-05-27 04:00] VITALS: BP 148/89; PULSE 73; PULSE 77; RESP 18; TEMP 36.7; O2SAT 96
[2021-05-27 06:14] LABS: Hematocrit 37.7 % (42.0-52.0); Hemoglobin 13.6 g/dL (14.0-18.0); Mean Corpuscular HGB Conc 36.1 g/dl (32-36); Mean Platelet Volume 9.5 fl (7.4-10.4); Platelet Count Result 365 k/mm3 (150-375); Red Blood Count 4.54 M/mm3 (4.6-6.20); Red Cell Distribution Width 11.7 % (11.5-14.5); White Blood Count 6.3 K/mm3 (4.5-10.0)
[2021-05-27 06:27] LABS: INR 1.1; Prothrombin Time 14.2 Seconds (11.1-14.7)
[2021-05-27 06:34] LABS: Alanine Aminotransferase 193 U/L (4-50); Albumin Level 3.8 g/dL (3.5-5.1); Alkaline Phosphatase 61 U/L (38-126); Anion Gap 3 mmol/L (8-16); Aspartate Amino Transferase 67 U/L (17-59); Bilirubin,Total 0.5 mg/dL (0.2-1.3); Blood Urea Nitrogen 15 mg/dL (9-20); Calcium 8.8 mg/dL (8.4-10.2); Carbon Dioxide 29 mmol/L (22-30); Chloride 101 mmol/L (98-107); Estimated CRCL calculation 141 ml/min; Estimated Glomerular Filt Rate > 60; Glucose 185 mg/dL (65-110); Lactate Dehydrogenase 830 U/L (313-618); Potassium 3.8 mmol/L (3.4-5.0); Sodium 133 mmol/L (137-145)
[2021-05-27 06:35] LABS: NT Pro B Type Natriuretic Pept 84 pg/mL (5-100)
[2021-05-27 08:00] VITALS: BP 151/89; PULSE 87; RESP 18; TEMP 36.3; O2SAT 93; O2SAT 95
[2021-05-27 08:39] VITALS: O2SAT 95
[2021-05-27] MEDS: ALBUTEROL SULFATE (*SP) INHALER 2 PUFF INHALATION (08:39)
[2021-05-27] MEDS: DEXAMETHASONE 2 MG TABLET 6 MG PO (09:11)
[2021-05-27] MEDS: APIXABAN 5 MG TABLET 10 MG PO (09:11)
[2021-05-27 09:24] LABS: Ferritin > 2000.00 ng/mL (17.9-464)
[2021-05-27 12:00] VITALS: BP 150/90; PULSE 89; RESP 20; TEMP 36.5; O2SAT 97
[2021-05-27 14:58] VITALS: PULSE 87; RESP 18; O2SAT 95
--- NOTE | 2021-05-27 15:04 | PM.DS ---
DS: Admitting Diagnosis Discharge Date 05/27/2021 Admitting Diagnosis Acute respiratory failure with hypoxia DS: Discharge Diagnosis Discharge Diagnosis (1) Syncope and collapse: Code(s): R55 - Syncope and collapse Status: Acute Assessment and Plan: Likely secondary to dehydration. Patient states episode occurred after having several bouts of diarrhea. Fall precautions implemented Orthostatic blood pressures negative He was rehydrated with IV fluids. Continue to encourage oral fluid intake Echocardiogram reviewed with normal systolic function and no significant valvular disease He did hit his head when he lost consciousness. Head CT with no acute findings. Small abrasion on anterior forehead (2) Pneumonia due to 2019 novel coronavirus: Code(s): U07.1 - COVID-19; J12.82 - Pneumonia due to coronavirus disease 2019 Status: Acute Assessment and Plan: Positive COVID test on 03/13/2021. CXR showed patchy bilateral airspace disease consistent with pneumonia, also evident on CTA He required up to 2.5 L supplemental O2 but was able to be weaned to room air. Home O2 evaluation performed with no ongoing oxygen requirements. Received dexamethasone given oxygen requirement. Did not receive remdesivir as he was outside of the window of treatment. Supportive care provided include bronchodilators, antipyretics, expectorants, incentive spirometry He was febrile up to 102.8?. Remained afebrile >36 hours He has not been vaccinated for COVID-19. Discussed that he was eligible for vaccination 90 days following illness and can arranged via PCP He should follow-up with PCP in 1 week for further monitoring. (3) Pulmonary emboli: Qualifiers: Acute cor pulmonale presence: without acute cor pulmonale Chronicity: acute Pulmonary embolism type: unspecified Qualified Code(s): I26.99 - Other pulmonary embolism without acute cor pulmonale Code(s): I26.99 - Other pulmonary embolism without acute cor pulmonale Status: Acute Assessment and Plan: CTA showed small filling defects in the right upper and lower lobe subsegmental pulmonary arteries with small thrombus burden, likely secondary to COVID-19 venous Doppler negative for DVT echo reviewed with no evidence of heart strain BNP within normal limits. troponin negative received therapeutic subcutaneous Lovenox injection prior to initiating Eliquis. Continue Eliquis 10 mg b.i.d. x7 days (until 05/31/2021) then 5 mg b.i.d. Anticoagulation education provided. He understands risks vs benefits and is agreeable to proceed Did develop pleuritic CP and desaturated overnight to 86% on 05/24, therefore repeat CTA performed on 05/25. Report showed no PE, however I discussed the case with radiologist, Dr. Solitario who states there is residual right lobe PE as well as left lobe PE with small clot burden. Reports he will provide addendum to documentation. Repeat BNP again within normal limits. He was able to be weaned from O2 and overall had symptomatic improvement. (4) Hyponatremia: Code(s): E87.1 - Hypo-osmolality and hyponatremia Status: Acute Assessment and Plan: Improved. Sodium was decreased at 129 at presentation FENa 0.1% Likely related to dehydration Sodium improved with IV fluid rehydration and he was tolerating oral intake. Encouraged adequate oral hydration (5) Hypokalemia: Code(s): E87.6 - Hypokalemia Status: Acute Assessment and Plan: Potassium slightly decreased on presentation Potassium levels improved with supplementation (6) Elevated blood pressure reading: Code(s): R03.0 - Elevated blood-pressure reading, without diagnosis of hypertension Status: Acute Assessment and Plan: No history of hypertension. Blood pressures elevated in the 140s-150s systolic May be related to pain and/or anxiety related to hospitalization. Reports
== END 2021-05-27 16:25 | disposition home or self-care (01) | DRG 177 ==
LOC: ANHED 08:51 → ANH2MED 14:57 → ANH3MEDSUR 17:27
PROVIDERS: Nurse Practitioner; Admitting Provider Internal Medicine; Emergency Provider General Practice; Visit Provider Physician Assistant
DX: U07.1 COVID-19 (principal); J12.82 Pneumonia due to coronavirus disease 2019; I26.99 Other pulmonary embolism without acute cor pulmonale; E87.1 Hypo-osmolality and hyponatremia; E86.0 Dehydration; E87.6 Hypokalemia; R03.0 Elevated blood-pressure reading, without diagnosis of hypertension; S01.81XA Laceration without foreign body of other part of head, initial encounter; W18.12XA Fall from or off toilet with subsequent striking against object, initial encounter
CPT/HCPCS: 36415; 70450; 71045; 71275; 74177; 80053; 81001; 82565; 82570; 82728; 83605; 83615; 83690; 83735; 83880; 84295; 84300; 84443; 84460; 84484; 85025; 85027; 85610; 85730; 86140; 93005; 93306; 93970; 94640; 96361; 96365; 96372; 96375; 99285; A9270; G0378; J0131; J1650; J2405; J7120; J8540; Q9967

== ENCOUNTER 2021-08-15 16:06 | Outpatient (CLI) | payer BC, SELFPAY ==
[2021-08-15 17:01] LABS: Estimated Glomerular Filt Rate > 60
== END 2021-08-15 16:07 | disposition home or self-care (01) ==
PROVIDERS: Visit Provider Nurse Practitioner
DX: Z86.711 Personal history of pulmonary embolism (principal)
CPT/HCPCS: 36415; 82565

== ENCOUNTER → 2021-08-22 15:19 | Outpatient (CLI) | payer BC, SELFPAY ==
--- NOTE | ~2021-08-22 | CT_ITS ---
EXAMINATION: CTA chest PE protocol EXAM DATE: 08/22/2021 15:44 INDICATION: History pulmonary embolism, three-month follow-up. TECHNIQUE: Spiral CTA of the chest (pulmonary arteries) was performed with 100 cc Omnipaque 350 intr avenous contrast injection. Images were acquired during the pulmonary arterial phase. Coronal maxi mum intensity projection 3D-reconstructions were created by the technologist on dedicated workstation . Axial, coronal and sagittal reformatted images were reviewed. The dose-length product (DLP) for t his examination was 671.48 mGy-cm. The exposure was tailored according to patient size (auto mA exp osure control), and iterative reconstruction (ASIR) was used as additional dose reduction technique. Comparison is made to prior examination from 05/25/2021. FINDINGS: Pulmonary arteries are well opacified and without intraluminal filling defects. No thora cic aortic dissection. Very faint residual groundglass opacities, residual from the COVID pneumonia. Imaged in May. There are no pleural or pericardial effusions. Tracheobronchial tree is paten t. There is no mediastinal, hilar or axillary lymphadenopathy. There is no pneumothorax. Heart normal in size. No evidence of coronary arterial calcification. Upper abdomen is unremarkable. T here is thoracic spondylosis without osteoblastic or osteolytic lesions identified. IMPRESSION: 1. Minimal residual opacities from prior COVID pneumonia. 2. No pulmonary emboli. Reviewed, dictated and finalized at location G.
== END ==
PROVIDERS: PCP Nurse Practitioner; Visit Provider Nurse Practitioner
DX: Z86.711 Personal history of pulmonary embolism (principal); Z86.16 Personal history of COVID-19
CPT/HCPCS: 71275; Q9967